=== PATIENT | female | born 1985 | race Caucasian/White ===

== ENCOUNTER 2017-11-01 15:09 | Emergency (ER) | payer OTHER ==
[~2017-11-01] VITALS: Ht 162.6 cm; Wt 56.7 kg
[~2017-11-01 15:09] MED LIST: AMOXICILLIN 50500 M1 PO; AMOXICILLIN 50500 MG PO; IBUPROFEN 600600 M1 PO; LORTABELXR PO; MILLIPRED10 MG/5 ML PO; NUVARING VAGIN1 EACH; NUVARING VAGIN1 EACH VG; SYNTHROID88 MCG PO; VALTREX
[2017-11-01] MEDS ORDERED: NORCO 10-325 T1 EACH PO (16:16)
[2017-11-01 16:41] VITALS: BP 132/71
== END 2017-11-01 16:42 | disposition home or self-care (01) ==
LOC: ER 15:09
DX: S22.42XA Multiple fractures of ribs, left side, initial encounter for closed fracture (principal); S61.210A Laceration without foreign body of right index finger without damage to nail, initial encounter; Z88.1 Allergy status to other antibiotic agents; Y04.0XXA Assault by unarmed brawl or fight, initial encounter; Y93.89 Activity, other specified; Y92.89 Other specified places as the place of occurrence of the external cause; Y99.8 Other external cause status

== ENCOUNTER 2017-12-13 15:18 | Emergency (ER) | payer OTHER ==
[~2017-12-13] VITALS: Ht 160 cm; Wt 58.5 kg
[~2017-12-13 15:18] MED LIST changes: +NORCO 10-325 T1 EACH PO
[2017-12-13] MEDS ORDERED: BACTRIM DS TAB1 EACH PO (16:47)
[2017-12-13 16:58] VITALS: BP 119/76
== END 2017-12-13 16:40 | disposition home or self-care (01) ==
LOC: ER 15:18
DX: S60.450A Superficial foreign body of right index finger, initial encounter (principal); Z23 Encounter for immunization; Z88.1 Allergy status to other antibiotic agents; X58.XXXA Exposure to other specified factors, initial encounter; Y93.89 Activity, other specified; Y92.89 Other specified places as the place of occurrence of the external cause; Y99.8 Other external cause status

== ENCOUNTER 2020-11-30 09:06 | Emergency (ER) | payer OTHER ==
[~2020-11-30] VITALS: Ht 160 cm; Wt 59.0 kg
[~2020-11-30 09:06] MED LIST changes: +BACTRIM DS TAB1 EACH PO
[2020-11-30 10:05] LABS: CALCIUM 8.9 mg/dL (8.5-10.1)
[2020-11-30 10:12] LABS: ALBUMIN 3.9 g/dL (3.4-5.0); TOTAL BILIRUBIN 0.3 mg/dL (0.2-1.0); TOTAL PROTEIN 7.8 g/dL (6.4-8.2)
[2020-11-30 10:40] LABS: ABSOLUTE NEUTROPHILS 15.5 thou/uL (1.4-8.2); BASOPHILS 0.3 % (0.0-2.0); EOSINOPHILS 0.2 % (0.0-3.0); HEMATOCRIT 39.9 % (37.0-47.0); HEMOGLOBIN 13.1 gm/dL (12.0-15.0); LYMPHOCYTES 6.2 % (24.0-44.0); MCH 29.3 pg (26.0-34.0); MCHC 32.9 g/dL (28.0-37.0); MONOCYTES 3.6 % (1.0-8.0); PLATELET COUNT 356 thou/uL (150-400); POLYS 89.7 % (36.0-66.0); RBC 4.49 mil/uL (4.20-5.00); WBC 17.3 thou/uL (4.0-11.0)
[2020-11-30] MEDS ORDERED: ZOFRAN ODT4 MG PO ×2 (11:10→11:13)
[2020-11-30] MEDS ORDERED: HYDROCODON-ACE1 EAC7 PO ×2 (11:10→11:13)
[2020-11-30 11:39] VITALS: BP 146/99
== END 2020-11-30 11:40 | disposition home or self-care (01) ==
LOC: ER 09:06
PROVIDERS: Emergency Medicine
DX: N20.0 Calculus of kidney (principal); Z79.899 Other long term (current) drug therapy; Z88.1 Allergy status to other antibiotic agents